=== PATIENT | male | born 1975 | race Caucasian/White ===

== ENCOUNTER 2023-12-24 08:56 | Day surgery (SDC) | payer OTHER ==
--- NOTE | 2023-12-18 08:23 | HP ---
DATE OF SURGERY: 12/24/2023 HISTORY OF PRESENT ILLNESS: The patient is a 48-year-old male presents with complaints of right inguinal hernia. He states he had surgery at the site in 1991, not sure if he has any mesh. It pops, bulges and hurts at times. He said it is getting bigger and more painful now. He would have actually had this repaired but had been canceled for an abnormal EKG. He had seen Dr. Polk and he was cleared. He was told that it was nothing by the insurance writer. PAST MEDICAL HISTORY: Hypertension. PAST SURGICAL HISTORY: Hernia repair. ALLERGIES: NKDA. MEDICATIONS: Lisinopril, Adderall. FAMILY HISTORY: Diabetes. SOCIAL HISTORY: Former smoker. REVIEW OF SYSTEMS: CONSTITUTIONAL: Denies fever or chills. CHEST: Denies shortness of breath. CVS: Denies chest pain. ABDOMEN: Reports right inguinal hernia pain. PHYSICAL EXAMINATION: GENERAL: No acute distress. CHEST: Nonlabored. No shortness of breath. CVS: Regular rate and rhythm. ABDOMEN: Soft with right inguinal hernia that is soft and tender to palpation. IMPRESSION: Small to moderate right inguinal hernia. PLAN: Right inguinal hernia repair possible mesh with Dr. Will Livingston. As dictated by Riddhi Powell NP.
[~2023-12-24 08:56] MED LIST: Lactated Ringers 1,000 ML IV ONE; Sensorcaine 0.25% 10 ML ONE
[2023-12-24] MEDS ORDERED: EXPAREL 133 MG/10 ML VIAL IJ ONE (08:57)
[2023-12-24 09:36] VITALS: PULSE 79; RESP 16; O2SAT 96
[2023-12-24] MEDS ORDERED: CEFAZOLIN 2 GM-D5W BAG** 2 GM/50 ML ML IV ONE (09:40)
[2023-12-24] MEDS ORDERED: Lactated Ringers 1,000 ML IV ONE (09:41)
[2023-12-24] MEDS: Pepcid 20 MG VIAL IV ONE (09:42)
[2023-12-24] MEDS: Reglan 10 MG/2 ML IV ONE (09:42)
[2023-12-24] MEDS: Lactated Ringers 1,000 ML IV SCH (09:46)
[2023-12-24] MEDS: CEFAZOLIN 2 GM-D5W BAG** 2 GM/50 ML ML IV SCH (09:47)
[2023-12-24] MEDS ORDERED: SOD CITRATE-CITRIC ACID SOLN ONE (10:01)
[2023-12-24] MEDS: SOD CITRATE-CITRIC ACID SOLN PO STA (10:02)
[2023-12-24 10:04] VITALS: TEMP 98
[2023-12-24] MEDS ORDERED: SUBLIMAZE 100 MCG/2 ML ONE ×2 (10:54→12:37)
[2023-12-24] MEDS ORDERED: Versed 2 MG/2 ML Injection ONE (10:54)
[2023-12-24] MEDS ORDERED: Decadron 4 MG INJ ONE (10:55)
[2023-12-24] MEDS ORDERED: BRIDION 200MG/2ML IV ONE (10:55)
[2023-12-24] MEDS ORDERED: DIPRIVAN 200 MG/20 ML IV ONE (10:55)
[2023-12-24] MEDS ORDERED: Zemuron 100 MG/10 ML ONE (10:55)
[2023-12-24] MEDS ORDERED: Xylocaine-Mpf 2% 5 Ml Vial ONE (10:55)
[2023-12-24] MEDS ORDERED: TORAdol 30 mg Injection ONE (10:55)
[2023-12-24] MEDS ORDERED: Zofran 4 MG/2 ML VIAL ONE (10:55)
[2023-12-24] MEDS ORDERED: DEXMEDETOMIDINE 80 MCG/20ML-NS IV ONE (10:59)
[2023-12-24] MEDS ORDERED: Marcaine Mpf 0.5% Vial 30 Ml ONE (11:03)
[2023-12-24] MEDS ORDERED: OFIRMEV 100 ML IV ONE (11:04)
[2023-12-24] MEDS ORDERED: Ephedrine Sulfate 50 MG/ML ONE (11:28)
[2023-12-24] MEDS ORDERED: PHENYLEPHRINE HCL ONE (11:34)
[2023-12-24] MEDS ORDERED: Hydromorphone 1 mg/ml Injection ONE (12:26)
[2023-12-24 14:00] VITALS: BP 135/85
--- NOTE | 2023-12-25 11:45 | OP ---
SURGERY DATE/TIME: 12/24/2023 1106 PREOPERATIVE DIAGNOSIS: Right inguinal hernia. POSTOPERATIVE DIAGNOSIS: Recurrent right inguinal hernia. PROCEDURE: Open right inguinal herniorrhaphy primary suture repair of a direct defect. SURGEON: Will Livingston M.D. ANESTHESIA: General. COMPLICATIONS: None. CONDITION: Stable. INDICATION: The patient had a previous right inguinal x-ray. He has a small hernia just a little over the symphysis pubis that comes out with coughing and straining. It was marked out. DESCRIPTION OF PROCEDURE: The patient is taken to surgery. Curvilinear incision. Previous incision had been sort of oblique. The cord skeletonized. No indirect hernia. There was a direct defect a 1.5 cm wide. It bulged out about 4 cm. It was reduced. The floor was re-approximated with 0 Prolene and suture repair in multiple layers. The floor felt satisfactory at this time. No mesh was used. External oblique closed with 0 Vicryl. Nabor approximated with 3-0 Vicryl. Skin closed with 4-0 Vicryl. Sterile dressing applied. The patient tolerated the procedure satisfactorily.
== END 2023-12-24 14:15 | disposition home or self-care (01) ==
LOC: SDC 08:56
PROVIDERS: ATTEND Surgery
DX: K40.91 Unilateral inguinal hernia, without obstruction or gangrene, recurrent (principal)
CPT/HCPCS: J0690; J1100; J1170; J1885; J2250; J2371; J2405; J2704; J3010; A9270-GY